=== PATIENT | female | born 2005 | race Caucasian/White ===

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

== ENCOUNTER 2024-05-11 10:49 | Emergency (ER) | payer OTHER ==
[~2024-05-11] VITALS: Ht 172.7 cm; Wt 93.0 kg
[~2024-05-11 10:49] MED LIST changes: +CIPRO500 MG PO; +Ondansetron4 MG PO
[2024-05-11] MEDS ORDERED: Ketorolac Tromethamine 15 MG/ML VIAL IV ONE (11:20)
[2024-05-11] MEDS ORDERED: Lactated Ringer's Solution 500 ML IV SCH (11:20)
[2024-05-11] MEDS ORDERED: Ondansetron Hydrochloride 4 MG/2 ML VIAL IV ONE (11:20)
[2024-05-11] MEDS ORDERED: IOHEXOL 300 MG/ML 100 ML VIAL IV ONE (11:30)
[2024-05-11 11:39] LABS: BASO % 0.4 % (0.0-1.0); EOS # 0.3 10*3/uL (0.0-0.4); HEMATOCRIT 38.8 % (37.0-47.0); MEAN CELL VOLUME 85.8 fl (81.0-99.0); MEAN CORPUSCULAR HGB 28.1 pg (27.0-31.0); MEAN CORPUSCULAR HGB CONC 32.7 g/dl (33.0-37.0); MEAN PLATELET VOLUME 10.5 fl (9.6-12.3); MONO # 0.5 10*3/uL (0.1-1.0); MONO % 5.7 % (3.0-9.0); NEUT # 6.6 10*3/uL (2.3-7.9); NEUT % 72.2 % (47.0-73.0); PLATELET COUNT AUTOMATED 254 10*3/uL (130-400); RED BLOOD COUNT 4.52 10*6/uL (4.10-5.10); RED CELL DISTRI WIDTH 12.9 % (0-14.5); WHITE BLOOD COUNT 9.1 10*3/uL (4.8-10.8)
[2024-05-11 12:01] LABS: ALKALINE PHOSPHATASE 74 U/L (46-116); BUN 8 mg/dl (9-23); CHLORIDE 106 mmol/L (98-107); LIPASE 35 U/L (12-53); SGPT/ALT 8 U/L (5-49); TOTAL PROTEIN 7.3 gm/dL (6.0-8.0)
[2024-05-11 13:04] LABS: BILIRUBIN Negative (Negative); BLOOD Negative (Negative); CLARITY Clear (Clear); COLOR Dark Yellow (Yellow); GLUCOSE Negative (Negative); KETONE Negative (Negative); LEUKO ESTERASE Negative (Negative); NITRITE Negative (Negative); PH 5.5 (4.5-8.0); SPECIFIC GRAVITY >= 1.030 (1.001-1.030)
[2024-05-11 13:14] LABS: EPITHELIAL CELLS 0-2; MUCOUS TRACE; RBC 0-2 rbc/hpf (0-2); WBC 0-2 wbc/hpf (0-5)
[2024-05-11] MEDS ORDERED: NAPROSYN500 MG PO (13:30)
[2024-05-11] MEDS ORDERED: CYCLOBENZAPRINE10 MG PO (13:30)
== END 2024-05-11 13:37 | disposition home or self-care (01) ==
LOC: ED 10:49
PROVIDERS: Nurse Practitioner Family
DX: S39.012A Strain of muscle, fascia and tendon of lower back, initial encounter (principal); R10.31 Right lower quadrant pain; M79.604 Pain in right leg; M79.605 Pain in left leg; F90.9 Attention-deficit hyperactivity disorder, unspecified type; X50.0XXA Overexertion from strenuous movement or load, initial encounter; Y93.89 Activity, other specified; Y92.89 Other specified places as the place of occurrence of the external cause; Y99.0 Civilian activity done for income or pay

== ENCOUNTER 2024-06-27 23:20 | Emergency (ER) | payer OTHER ==
[~2024-06-27] VITALS: Ht 172.7 cm; Wt 92.1 kg
[~2024-06-27 23:20] MED LIST changes: +CYCLOBENZAPRINE10 MG PO; +NAPROSYN500 MG PO
== END 2024-06-28 01:28 | disposition home or self-care (01) ==
LOC: ED 23:20
DX: J10.1 Influenza due to other identified influenza virus with other respiratory manifestations (principal); Z20.822 Contact with and (suspected) exposure to COVID-19; Z79.899 Other long term (current) drug therapy

== ENCOUNTER 2024-11-03 11:19 | Emergency (ER) | payer SELFPAY ==
[~2024-11-03] VITALS: Ht 175.2 cm; Wt 90.7 kg
[2024-11-03] MEDS ORDERED: Ketorolac Tromethamine 30 MG/ML VIAL IV ONE (12:05)
[2024-11-03] MEDS ORDERED: IOHEXOL 300 MG/ML 100 ML VIAL IV ONE (12:10)
[2024-11-03 12:22] LABS: BASO % 0.3 % (0.0-1.0); EOS # 0.4 10*3/uL (0.0-0.4); EOS % 3.8 % (1.0-4.0); HEMATOCRIT 35.5 % (37.0-47.0); MEAN CELL VOLUME 84.7 fl (81.0-99.0); MEAN CORPUSCULAR HGB 28.2 pg (27.0-31.0); MEAN CORPUSCULAR HGB CONC 33.2 g/dl (33.0-37.0); MONO # 0.9 10*3/uL (0.1-1.0); NEUT # 7.2 10*3/uL (2.3-7.9); NEUT % 72.3 % (47.0-73.0); PLATELET COUNT AUTOMATED 201 10*3/uL (130-400); RED BLOOD COUNT 4.19 10*6/uL (4.10-5.10); RED CELL DISTRI WIDTH 12.3 % (0-14.5)
[2024-11-03 12:41] LABS: BUN 7 mg/dl (9-23); CHLORIDE 104 mmol/L (98-107); POTASSIUM 3.4 mmol/L (3.4-5.1)
[2024-11-03 12:45] LABS: BILIRUBIN Negative (Negative); BLOOD Negative (Negative); CLARITY Clear (Clear); COLOR Yellow (Yellow); GLUCOSE Negative (Negative); KETONE Negative (Negative)
[2024-11-03 12:46] LABS: LEUKO ESTERASE Negative (Negative); NITRITE Negative (Negative); UROBILINOGEN 0.2 E.U./dl (0.0-1.0)
[2024-11-03 12:53] LABS: BACTERIA TRACE; MUCOUS TRACE; WBC 0-2 wbc/hpf (0-5)
== END 2024-11-03 14:21 | disposition home or self-care (01) ==
LOC: ED 11:19
PROVIDERS: Physician Assistant Medical
DX: R10.11 Right upper quadrant pain (principal); R18.8 Other ascites; Z79.899 Other long term (current) drug therapy

== ENCOUNTER 2024-12-20 16:00 | Emergency (ER) | payer SELFPAY ==
[~2024-12-20] VITALS: Wt 90.7 kg
[2024-12-20] MEDS ORDERED: Ondansetron Hydrochloride 4 MG/2 ML VIAL IV ONE (17:00)
[2024-12-20] MEDS ORDERED: SODIUM CHLORIDE 0.9% 1,000 ML IV ONE (17:00)
[2024-12-20 17:20] LABS: BASO % 0.4 % (0.0-1.0); EOS % 0.4 % (1.0-4.0); HEMATOCRIT 35.7 % (37.0-47.0); MEAN CELL VOLUME 82.4 fl (81.0-99.0); MEAN CORPUSCULAR HGB 27.3 pg (27.0-31.0); MEAN CORPUSCULAR HGB CONC 33.1 g/dl (33.0-37.0); MEAN PLATELET VOLUME 10.9 fl (9.6-12.3); MONO # 0.6 10*3/uL (0.1-1.0); MONO % 13.1 % (3.0-9.0); NEUT # 3.3 10*3/uL (2.3-7.9); NEUT % 69.1 % (47.0-73.0); PLATELET COUNT AUTOMATED 172 10*3/uL (130-400); RED BLOOD COUNT 4.33 10*6/uL (4.10-5.10); RED CELL DISTRI WIDTH 13.1 % (0-14.5); WHITE BLOOD COUNT 4.8 10*3/uL (4.8-10.8)
[2024-12-20 17:36] LABS: BUN 7 mg/dl (9-23); CHLORIDE 104 mmol/L (98-107); POTASSIUM 3.2 mmol/L (3.4-5.1)
[2024-12-20 18:05] LABS: BILIRUBIN Negative (Negative); BLOOD Negative (Negative); CLARITY Clear (Clear); COLOR Yellow (Yellow); GLUCOSE Negative (Negative); KETONE Trace (Negative); LEUKO ESTERASE Negative (Negative); NITRITE Negative (Negative)
[2024-12-20 18:15] LABS: RBC 0-2 rbc/hpf (0-2); WBC 0-2 wbc/hpf (0-5)
[2024-12-20] MEDS ORDERED: POTASSIUM CHLORIDE 20 MEQ TAB PO ONE (18:25)
[2024-12-20] MEDS ORDERED: Ondansetron4 MG PO (18:53)
== END 2024-12-20 18:55 | disposition home or self-care (01) ==
LOC: ED 16:00
PROVIDERS: Nurse Practitioner Family
DX: T67.5XXA Heat exhaustion, unspecified, initial encounter (principal); E87.6 Hypokalemia; X58.XXXA Exposure to other specified factors, initial encounter; Y93.89 Activity, other specified; Y92.89 Other specified places as the place of occurrence of the external cause; Y99.8 Other external cause status

== ENCOUNTER 2024-12-22 22:40 | Emergency (ER) | payer SELFPAY ==
[~2024-12-22] VITALS: Ht 170.1 cm; Wt 90.7 kg
[2024-12-22] MEDS ORDERED: Ketorolac Tromethamine 30 MG/ML VIAL IV ONE (23:35)
[2024-12-22] MEDS ORDERED: Ondansetron Hydrochloride 4 MG/2 ML VIAL IV ONE (23:35)
[2024-12-22] MEDS ORDERED: SODIUM CHLORIDE 0.9% 1,000 ML IV ONE (23:35)
[2024-12-22 23:53] LABS: BASO % 0.2 % (0.0-1.0); HEMATOCRIT 32.8 % (37.0-47.0); MEAN CELL VOLUME 80.6 fl (81.0-99.0); MEAN CORPUSCULAR HGB CONC 33.5 g/dl (33.0-37.0); MEAN PLATELET VOLUME 11.2 fl (9.6-12.3); MONO # 0.6 10*3/uL (0.1-1.0); MONO % 10.2 % (3.0-9.0); NEUT # 4.9 10*3/uL (2.3-7.9); PLATELET COUNT AUTOMATED 147 10*3/uL (130-400); RED BLOOD COUNT 4.07 10*6/uL (4.10-5.10); RED CELL DISTRI WIDTH 13.2 % (0-14.5); WHITE BLOOD COUNT 6.2 10*3/uL (4.8-10.8)
[2024-12-23 00:14] LABS: BUN 9 mg/dl (9-23); CHLORIDE 100 mmol/L (98-107); POTASSIUM 3.1 mmol/L (3.4-5.1)
[2024-12-23 00:48] LABS: BILIRUBIN Negative (Negative); BLOOD Negative (Negative); CLARITY Cloudy (Clear); COLOR Dark Yellow (Yellow); GLUCOSE Negative (Negative); KETONE 1+ (Negative); LEUKO ESTERASE 1+ (Negative); NITRITE Negative (Negative); PH 6.5 (4.5-8.0); SPECIFIC GRAVITY >= 1.030 (1.001-1.030)
[2024-12-23 00:51] LABS: URINE AMPHETAMINES Negative (1000ng/ml); URINE BARBITURATES Negative (200ng/ml); URINE BENZODIAZEPINES Negative (200ng/ml); URINE CANNABINOIDS (THC) Positive (50ng/ml); URINE COCAINE Negative (300ng/ml); URINE METHADONE Negative (300ng/ml); URINE OPIATES Negative (300ng/ml); URINE PHENCYCLIDINE Negative (25ng/ml)
[2024-12-23 01:03] LABS: EPITHELIAL CELLS 21-30; YEAST TRACE
[2024-12-23] MEDS ORDERED: Acetaminophen/Hydrocodone 5 MG/325 MG TABLET PO ONE (02:55)
[2024-12-23] MEDS ORDERED: SODIUM CHLORIDE 0.9% 1,000 ML IV ONE ×2 (03:50)
[2024-12-23] MEDS ORDERED: Midazolam Hydrochloride 2 MG/2 ML VIAL IV ONE (03:50)
[2024-12-23] MEDS ORDERED: cefTRIAXone Sodium 1 GM/10 ML SYR IV ONE (04:20)
[2024-12-23] MEDS ORDERED: Vancomycin Hydrochloride 250 ML IV ONE (07:05)
== END 2024-12-23 08:30 | disposition short-term general hospital (02) ==
LOC: ED 22:40
PROVIDERS: Emergency Medicine
DX: G03.9 Meningitis, unspecified (principal); Z79.899 Other long term (current) drug therapy

== ENCOUNTER 2025-04-06 16:35 | Emergency (ER) | payer SELFPAY ==
[~2025-04-06] VITALS: Ht 172.7 cm; Wt 90.7 kg
[2025-04-06] MEDS ORDERED: ZYRTEC5 M2 PO (17:23)
[2025-04-06] MEDS ORDERED: LISSAMINE GREEN 1.5 MG STRIP OP ONE (17:40)
[2025-04-06] MEDS ORDERED: ERYTHROMYCIN OPH1 GM OPH (18:03)
== END 2025-04-06 18:09 | disposition home or self-care (01) ==
LOC: ED 16:35
DX: H10.9 Unspecified conjunctivitis (principal); Z79.899 Other long term (current) drug therapy

== ENCOUNTER 2025-04-17 15:53 | Emergency (ER) | payer SELFPAY ==
[~2025-04-17] VITALS: Ht 172.7 cm; Wt 90.7 kg
[~2025-04-17 15:53] MED LIST changes: +ERYTHROMYCIN OPH1 GM OPH; +ZYRTEC5 M2 PO
[2025-04-17] MEDS ORDERED: FLUORESCEIN SODIUM 1 MG STRIP OPH ONE (16:40)
[2025-04-17] MEDS ORDERED: Ondansetron Hydrochloride 4 MG/2 ML VIAL IV ONE (17:10)
[2025-04-17 17:59] LABS: BASO # 0.0 10*3/uL (0.0-0.1); BASO % 0.2 % (0.0-1.0); EOS # 0.0 10*3/uL (0.0-0.4); EOS % 0.0 % (1.0-4.0); MEAN CELL VOLUME 84.8 fl (81.0-99.0); MEAN CORPUSCULAR HGB 27.1 pg (27.0-31.0); MEAN PLATELET VOLUME 11.0 fl (9.6-12.3); MONO # 0.8 10*3/uL (0.1-1.0); MONO % 5.1 % (3.0-9.0); NEUT # 14.0 10*3/uL (2.3-7.9); NEUT % 85.4 % (47.0-73.0); NUCLEATED RED BLOOD CELL 0.0 % (0.0-0.0); NUCLEATED RED BLOOD CELL 0.0 10*3/uL (0.0-0.0); PLATELET COUNT AUTOMATED 265 10*3/uL (130-400); RED CELL DISTRI WIDTH 13.0 % (0-14.5)
[2025-04-17] MEDS ORDERED: Ampicillin Sodium/Sulbactam 3 GM in SODIUM CHLORIDE 0.9% 100 ML IV ONE (18:10)
[2025-04-17 18:19] LABS: BUN 8 mg/dl (9-23)
[2025-04-17] MEDS ORDERED: TRAMADOL HCL50 MG PO (18:34)
[2025-04-17] MEDS ORDERED: Ondansetron4 MG PO (18:34)
[2025-04-17] MEDS ORDERED: Ondansetron 4 MG 2 TAB ED PACK PO SCH (18:50)
== END 2025-04-17 18:52 | disposition home or self-care (01) ==
LOC: ED 15:53
PROVIDERS: Emergency Medicine
DX: H16.133 Photokeratitis, bilateral (principal); H66.91 Otitis media, unspecified, right ear; F90.9 Attention-deficit hyperactivity disorder, unspecified type